=== PATIENT | male | born 1955 | race Caucasian/White ===

== ENCOUNTER 2017-07-20 15:46 | Emergency (ER) | payer OTHER ==
--- NOTE | 2017-07-20 16:37 | EDM.PDOC ---
ED HPI GENERAL MEDICAL PROBLEM - General Chief Complaint: Back Pain or Injury Stated Complaint: LOWER BACK PAIN Time Seen by Provider: 07/20/17 16:31 Source of Information: Reports: Patient History Limitations: Reports: No Limitations - History of Present Illness INITIAL COMMENTS - FREE TEXT/NARRATIVE: HISTORY AND PHYSICAL: History of present illness: Patient is a 62-year-old male complaining of low back pain. Reports that at 2: 30pm this afternoon he was helping a friend move a stove into his apartment when he felt pain in his low back. States he was pushing while the other friend was pulling on the stove and the pain started. He states the pain does not radiate anywhere, denies any numbness or tingling to his lower extremities, and has not been incontinent of stool or urine. Denies any change in his bowel or bladder pattern. Patient reports he has had muscle strain and sciatica in the past and normally wears a back brace when doing heavy lifting. He has a soft back brace with him which he plans on using over the next couple days. Denies any recent falls, trauma or injury to the area. Review of systems: As per history of present illness and below otherwise all systems reviewed and negative. Past medical history: As per history of present illness and as reviewed below otherwise noncontributory. Surgical history: As per history of present illness and as reviewed below otherwise noncontributory. Social history: No reported history of drug or alcohol abuse. Family history: As per history of present illness and as reviewed below otherwise noncontributory. Physical exam: Gen.: Nontoxic appearing 62-year-old male. Able to speak in full sentences without shortness of breath. Alert and oriented HEENT: Atraumatic, normocephalic, pupils reactive, negative for conjunctival pallor or scleral icterus, mucous membranes moist, throat clear, neck supple, nontender, trachea midline. Lungs: Clear to auscultation, breath sounds equal bilaterally, chest nontender. Heart: S1S2, regular rate and rhythm Abdomen: Soft, nondistended, nontender. Negative for masses. Negative for costovertebral tenderness. Pelvis: Stable nontender. Genitourinary: Deferred. Rectal: Deferred. Back: C-spine and back were palpated without tenderness, crepitus, obvious deformity or step-off. Patient has full range of motion of the trunk/torso. Extremities: Atraumatic, negative for cords or calf pain. Neurovascular unremarkable. Neuro: Awake, alert, oriented. Cranial nerves II through XII unremarkable. Cerebellum unremarkable. Motor and sensory unremarkable throughout. Exam nonfocal. Offered to provide the patient with a lumbar back x-ray at this time. Due to the fact the patient had no recent trauma or injury to the area he declined at this time. Offered pain medication which patient deffered due to a drug screening that needs to be done for employment. Diagnostics: Deferred x-ray Therapeutics: Deferred medications at this time as he does have to go take a drug screen for his employer Impression: Muscle strain Definitive disposition and diagnosis as appropriate pending reevaluation and review of above. Onset: Today Onset Date: 07/20/17 Onset Time: 14:30 Duration: Hour(s): Location: Reports: Back Bilateral Lower Back Pain Score (Numeric/FACES): 6 - Related Data Allergies Allergy/AdvReac Type Severity Reaction Status Date / Time No Known Allergies Allergy Verified 12/10/16 09:42 Home Meds: Home Meds Aspirin 325 mg PO DAILY 07/20/17 [History] Past Medical History Cardiovascular History: Reports: Hypertension Other Cardiovascular History: used to take norvasc, but dc'd now - Infectious Disease History Infectious Disease History: Reports: Chicken Pox - Past Surgical History GI Surgical History: Reports: Cholecystectomy, Hernia, Inguinal Male Surgical History: Reports: Vasectomy Social & Family History - Family History Family Medical History: Noncontributory - Tobacco Use Smoking Status *Q: Current Every Day Smoker Years of Tobacco use: 55 Packs/Tins Daily: 1 Used Tobacco, but Quit: No Second Hand Smoke Exposure: Yes - Caffeine Use Caffeine Use: Reports: Coffee - Recreational Drug Use Recreational Drug Use: No ED ROS GENERAL - Review of Systems Review Of Systems: ROS reveals no pertinent complaints other than HPI. ED EXAM, GENERAL - Physical Exam Exam: See Below (See dictation) Course - Vital Signs Last Recorded V/S: Last Vital Signs Temp 36.8 C 07/20/17 16:04 Pulse 80 07/20/17 16:04 Resp 20 07/20/17 16:04 BP 143/77 H 07/20/17 16:04 Pulse Ox 94 L 07/20/17 16:04 Departure - Departure Time of Disposition: 16:38 Disposition: Home, Self-Care 01 Condition: Good Clinical Impression: Muscle strain - Discharge Information Referrals: PCP,None [Primary Care Provider] - Additional Instructions: The following information is given to patients seen in the emergency department who are being discharged to home. This information is to outline your options for follow-up care. We provide all patients seen in our emergency department with a follow-up referral. The need for follow-up, as well as the timing and circumstances, are variable depending upon the specifics of your emergency department visit. If you don't have a primary care physician on staff, we will provide you with a referral. We always advise you to contact your personal physician following an emergency department visit to inform them of the circumstance of the visit and for follow-up with them and/or the need for any referrals to a consulting specialist. The emergency department will also refer you to a specialist when appropriate. This referral assures that you have the opportunity for followup care with a specialist. All of these measure are taken in an effort to provide you with optimal care, which includes your followup. Under all circumstances we always encourage you to contact your private physician who remains a resource for coordinating your care. When calling for followup care, please make the office aware that this follow-up is from your recent emergency room visit. If for any reason you are refused follow-up, please contact the [facility] emergency department at and ask to speak to the emergency department charge nurse. [facility] Primary care- Internal Medicine and Family [address] [address] 1. Please take your medications as prescribed. Please do not take these medications while needing to function at work or driving as we discussed. May take Tylenol and/or ibuprofen as directed for daytime use 2. Apply heat to the area a couple times throughout the day 3. Follow-up with your primary care provider in the next 1-2 days. May return to the ED as needed as discussed
[2017-07-20 17:07] VITALS: BP 158/88
== END 2017-07-20 17:04 | disposition home or self-care (01) ==
LOC: MW.ED 15:46
DX: S39.012A Strain of muscle, fascia and tendon of lower back, initial encounter (principal); I10 Essential (primary) hypertension; F17.210 Nicotine dependence, cigarettes, uncomplicated; Z79.82 Long term (current) use of aspirin; X50.0XXA Overexertion from strenuous movement or load, initial encounter
CPT/HCPCS: 99283

== ENCOUNTER 2019-01-20 09:28 | Emergency (ER) | payer OTHER ==
[2019-01-20 09:45] VITALS: BP 139/88
[2019-01-20] MEDS ORDERED: Diphtheria,Pertussis(Acell),Tetanus Vaccine 0.5 ML Syringe IM ONE (09:55)
--- NOTE | 2019-01-20 10:06 | EDM.PDOC ---
ED HPI GENERAL MEDICAL PROBLEM - General Chief Complaint: Laceration Stated Complaint: GLASS IN HAND Time Seen by Provider: 01/20/19 10:00 Source of Information: Reports: Patient History Limitations: Reports: No Limitations - History of Present Illness INITIAL COMMENTS - FREE TEXT/NARRATIVE: HISTORY AND PHYSICAL: History of present illness: Patient is a 63-year-old male here with a laceration to his left hand. He states he was opening a fire extinguisher case when the glass slipped out of the case and cut him between the 3rd and 4th finger. He states the glass did not break. He is not UTD on his tetanus. Review of systems: As per history of present illness and below otherwise all systems reviewed and negative. Past medical history: As per history of present illness and as reviewed below otherwise noncontributory. Surgical history: As per history of present illness and as reviewed below otherwise noncontributory. Social history: No reported history of drug or alcohol abuse. Family history: As per history of present illness and as reviewed below otherwise noncontributory. Physical exam: General: Patient sitting comfortably in no acute distress and nontoxic appearing HEENT: Atraumatic, normocephalic, pupils reactive, negative for conjunctival pallor or scleral icterus, mucous membranes moist, throat clear, neck supple, nontender, trachea midline. No meningeal signs. Lungs: Clear to auscultation, breath sounds equal bilaterally, chest nontender. Heart: S1S2, regular, negative for clicks, rubs, or overt murmur. Abdomen: Soft, nondistended, nontender. Negative for masses or hepatosplenomegaly. Negative for costovertebral tenderness. No rigidity, rebound , guarding. Pelvis: Stable nontender. Genitourinary: Deferred. Rectal: Deferred. Extremities: There is a 1cm laceration in the web space of the left hand between the 3rd and 4th digits. negative for cords or calf pain. Neurovascular unremarkable. Neuro: Awake, alert, oriented. Cranial nerves II through XII unremarkable. Cerebellum unremarkable. Motor and sensory unremarkable throughout. Exam nonfocal. Notes: Diagnostics: None Therapeutics: Tdap Laceration repair Prescriptions: Impression: Laceration Plan: 1. Keep the area clean and dry as instructed 2. Follow up with primary care provider 3. Return to ED as needed as discussed Definitive disposition and diagnosis as appropriate pending reevaluation and review of above. - Related Data Allergies Allergy/AdvReac Type Severity Reaction Status Date / Time codeine Allergy Delusions Verified 01/20/19 09:39 Home Meds: Home Meds Cholecalciferol (Vitamin D3) [Vitamin D] 5,000 unit PO DAILY 01/20/19 [History] Mg Trisilicate/AlH/NahCO3/AA [Gaviscon 80-14.2 MG] 2 each PO DAILY PRN 01/20/19 [History] Potassium 1 tab PO DAILY 01/20/19 [History] Past Medical History Cardiovascular History: Reports: Hypertension Other Cardiovascular History: used to take norvasc, but dc'd now - Infectious Disease History Infectious Disease History: Reports: Chicken Pox - Past Surgical History GI Surgical History: Reports: Cholecystectomy, Hernia, Inguinal Male Surgical History: Reports: Vasectomy Social & Family History - Family History Family Medical History: Noncontributory - Tobacco Use Smoking Status *Q: Current Every Day Smoker Years of Tobacco use: 50 Packs/Tins Daily: 1 - Caffeine Use Caffeine Use: Reports: Coffee - Recreational Drug Use Recreational Drug Use: No ED ROS GENERAL - Review of Systems Review Of Systems: ROS reveals no pertinent complaints other than HPI. ED EXAM, SKIN/RASH Exam: See Below (see dictation) ED SKIN PROCEDURES - Laceration/Wound Repair Left Hand Lac/Wound length In cm: 1 Appearance: Superficial, Subcutaneous, Linear Distal NVT: Neuro & Vascular Intact, No Tendon Injury Anesthetic Type: Local Local Anesthesia - Lidocaine (Xylocaine): 1% Plain Skin Prep: Chlorhexidine (Hibiciens), Saline Saline Irrigation (cc's): 250 Exploration/Debridement/Repair: Wound Explored, In a Bloodless Field, Explored to Base Closed with: Sutures Suture Size: other (5-0 Chormic gut) # of Sutures: 3 Suture Type: Interrupted, Simple Course - Vital Signs Last Recorded V/S: Last Vital Signs Temp 97.2 F 01/20/19 09:41 Pulse 82 01/20/19 09:41 Resp 20 01/20/19 09:41 BP 139/88 01/20/19 09:41 Pulse Ox 94 L 01/20/19 09:41 - Orders/Labs/Meds Orders: Active Orders 24 hr Category Date Time Status Vaccines to be Administered [RC] PER UNIT ROUTINE Care 01/20/19 09:55 Ordered Meds: Medications Discontinued Medications Generic Name Dose Route Start Last Admin Trade Name Tory PRN Reason Stop Dose Admin Diphtheria/Tetanus/Acell Pertussis 0.5 ml 01/20/19 09:55 01/20/19 10:20 Adacel IM 01/20/19 09:56 0.5 ml .ONCE ONE Administration Lidocaine HCl 5 ml 01/20/19 09:55 01/20/19 10:21 Xylocaine-Mpf 1% INJECT 01/20/19 09:56 5 ml ONETIME ONE Administration Departure - Departure Time of Disposition: 10:40 Disposition: Home, Self-Care 01 Condition: Good Clinical Impression: Laceration - Discharge Information Referrals: PCP,Unknown [Primary Care Provider] - Forms: ED Department Discharge Additional Instructions: The following information is given to patients seen in the emergency department who are being discharged to home. This information is to outline your options for follow-up care. We provide all patients seen in our emergency department with a follow-up referral. The need for follow-up, as well as the timing and circumstances, are variable depending upon the specifics of your emergency department visit. If you don't have a primary care physician on staff, we will provide you with a referral. We always advise you to contact your personal physician following an emergency department visit to inform them of the circumstance of the visit and for follow-up with them and/or the need for any referrals to a consulting specialist. The emergency department will also refer you to a specialist when appropriate. This referral assures that you have the opportunity for follow-up care with a specialist. All of these measure are taken in an effort to provide you with optimal care, which includes your follow-up. Under all circumstances we always encourage you to contact your private physician who remains a resource for coordinating your care. When calling for follow-up care, please make the office aware that this follow-up is from your recent emergency room visit. If for any reason you are refused follow-up, please contact the [facility] Emergency Department at and asked to speak to the emergency department charge nurse. [facility] [address] [place] [id number] [facility] [address] [place] [id number] 1. Keep the area clean and dry as instructed 2. Follow up with primary care provider 3. Return to ED as needed as discussed - My Orders Last 24 Hours: My Active Orders 01/20/19 09:55 Vaccines to be Administered [RC] PER UNIT ROUTINE - Assessment/Plan Last 24 Hours: My Active Orders 01/20/19 09:55 Vaccines to be Administered [RC] PER UNIT ROUTINE
== END 2019-01-20 11:04 | disposition home or self-care (01) ==
LOC: MW.ED 09:28
DX: S61.412A Laceration without foreign body of left hand, initial encounter (principal); Z23 Encounter for immunization; I10 Essential (primary) hypertension; F17.210 Nicotine dependence, cigarettes, uncomplicated; Z88.5 Allergy status to narcotic agent; Z79.899 Other long term (current) drug therapy; W25.XXXA Contact with sharp glass, initial encounter
CPT/HCPCS: 12001; 90471; 90715; 99282; J2001

== ENCOUNTER 2020-05-21 12:56 | Emergency (ER) | payer BC, OTHER ==
[2020-05-21] MEDS ORDERED: methylPREDNISolone Sodium Succinate 125 MG/2 ML SDV IVPUSH ONE (13:09)
--- NOTE | 2020-05-21 13:13 | EDM.PDOC ---
ED HPI GENERAL MEDICAL PROBLEM - General Chief Complaint: Respiratory Problem Stated Complaint: TROUBLE BREATHING/SIDE PAIN Time Seen by Provider: 05/21/20 12:57 - History of Present Illness INITIAL COMMENTS - FREE TEXT/NARRATIVE: 65-year-old male with over [id number] smoking history presenting with shortness of breath and right-sided pleuritic chest pain. The patient reports that he has been experiencing some degree of shortness of breath and chronic cough for the last few months. Over the last 3 days he feels like it is gotten worse. 3 days ago he saw his primary care doctor and was started on albuterol neb. His doctor initially said to just do it once or twice a day. He took it 3 times this morning and does not feel like it made much of a difference. The shortness of breath is associated with a right lateral chest pain that worsens with deep breaths. He has a nonproductive cough he denies a fever. No abdominal pain no nausea or vomiting. No exertional chest pain. Patient also has a history of hypertension. No radiation or other associated symptoms. - Related Data Allergies Allergy/AdvReac Type Severity Reaction Status Date / Time codeine Allergy Delusions Verified 05/21/20 13:02 Home Meds: Home Meds Cholecalciferol (Vitamin D3) [Vitamin D] 5,000 unit PO DAILY 01/20/19 [History] Mag/Aluminum/Sod Bicarb/Alginc [Gaviscon 80-14.2 MG] 2 each PO DAILY PRN 01/20/19 [History] Potassium 1 tab PO DAILY 01/20/19 [History] Non-Formulary Medication [NF Drug] 1 each PO ASDIRECTED PRN 05/21/20 [History] predniSONE [Prednisone] 40 mg PO DAILY 4 Days #8 tablet 05/21/20 [Rx] Past Medical History Cardiovascular History: Reports: Hypertension Other Cardiovascular History: used to take norvasc, but dc'd now - Infectious Disease History Infectious Disease History: Reports: Chicken Pox - Past Surgical History GI Surgical History: Reports: Cholecystectomy, Hernia, Inguinal Male Surgical History: Reports: Vasectomy Social & Family History - Family History Family Medical History: Noncontributory - Tobacco Use Smoking Status *Q: Current Every Day Smoker Years of Tobacco use: 52 Packs/Tins Daily: 1 - Caffeine Use Caffeine Use: Reports: Coffee, Soda - Recreational Drug Use Recreational Drug Use: No ED ROS GENERAL - Review of Systems Review Of Systems: See Below Free Text/Narrative/Comment: General: No fever. Skin: No rash. Eyes: No vision problems. ENT: No sore throat. Neck: No neck stiffness. Respiratory: Per HPI Cardiac: Per HPI Gastrointestinal: No nausea, vomiting or abdominal pain. Urinary: No dysuria. Musculoskeletal: No myalgias/arthralgias. Neurologic: No headache. ED EXAM, GENERAL - Physical Exam Exam: See Below Free Text/Narrative:: General Appearance: No acute distress, appears comfortable Skin: No rash HEENT: Normocephalic/atraumatic, sclera anicteric, mucous membranes moist Neck: Normal range of motion Chest and Lungs: Bilateral breath sounds, clear to auscultation Cardiovascular: Regular rate and rhythm, no murmur Abdomen: Soft, non-tender Back: Normal Musculoskeletal: No edema or tenderness Neurologic: Awake, alert, no obvious deficits, moving all extremities Psychiatric: Appropriate, cooperative Course - Vital Signs Last Recorded V/S: Last Vital Signs Temp 96.5 F L 05/21/20 13:03 Pulse 94 05/21/20 13:03 Resp 18 05/21/20 13:03 BP 138/83 05/21/20 13:03 Pulse Ox 95 05/21/20 13:03 - Orders/Labs/Meds Labs: Laboratory Tests 05/21/20 05/21/20 05/21/20 Range/Units 13:24 13:24 13:24 WBC 10.06 (4.0-11.0) K/uL RBC 5.13 (4.50-5.90) M/uL Hgb 17.1 H (13.0-17.0) g/dL Hct 49.5 (38.0-50.0) % MCV 96.5 (80.0-98.0) fL MCH 33.3 H (27.0-32.0) pg MCHC 34.5 (31.0-37.0) g/dL RDW Std Deviation 46.2 (28.0-62.0) fl RDW Coeff of Tres 13 (11.0-15.0) % Plt Count 202 (150-400) K/uL MPV 11.00 (7.40-12.00) fL Neut % (Auto) 57.8 (48.0-80.0) % Lymph % (Auto) 29.6 (16.0-40.0) % Price % (Auto) 11.1 (0.0-15.0) % Eos % (Auto) 1.2 (0.0-7.0) % Baso % (Auto) 0.3 (0.0-1.5) % Neut # (Auto) 5.8 H (1.4-5.7) K/uL Lymph # (Auto) 3.0 H (0.6-2.4) K/uL Price # (Auto) 1.1 H (0.0-0.8) K/uL Eos # (Auto) 0.1 (0.0-0.7) K/uL Baso # (Auto) 0.0 (0.0-0.1) K/uL Nucleated RBC % 0.2 /100WBC Nucleated RBCs # 0 K/uL D-Dimer, Quantitative (0.0-0.50) mg/L FEU Sodium 137 (136-148) mmol/L Potassium 4.3 (3.5-5.1) mmol/L Chloride 100 (98-107) mmol/L Carbon Dioxide 26.9 (21.0-32.0) mmol/L BUN 18 (7.0-18.0) mg/dL Creatinine 1.0 (0.8-1.3) mg/dL Est Cr Clr Drug Dosing 75.03 mL/min Estimated GFR (MDRD) > 60.0 ml/min Glucose 213 H (74-106) mg/dL Calcium 9.0 (8.5-10.1) mg/dL Total Bilirubin 0.5 (0.2-1.0) mg/dL AST 27 (15-37) IU/L ALT 56 (14-63) IU/L Alkaline Phosphatase 49 (46-116) U/L Troponin I < 0.050 (0.000-0.056) ng/mL B-Natriuretic Peptide < 2 (<100) PG/ML Total Protein 7.5 (6.4-8.2) g/dL Albumin 4.0 (3.4-5.0) g/dL Globulin 3.5 (2.6-4.0) g/dL Albumin/Globulin Ratio 1.1 (0.9-1.6) 07/13/20 Range/Units 14:20 WBC (4.0-11.0) K/uL RBC (4.50-5.90) M/uL Hgb (13.0-17.0) g/dL Hct (38.0-50.0) % MCV (80.0-98.0) fL MCH (27.0-32.0) pg MCHC (31.0-37.0) g/dL RDW Std Deviation (28.0-62.0) fl RDW Coeff of Tres (11.0-15.0) % Plt Count (150-400) K/uL MPV (7.40-12.00) fL Neut % (Auto) (48.0-80.0) % Lymph % (Auto) (16.0-40.0) % Price % (Auto) (0.0-15.0) % Eos % (Auto) (0.0-7.0) % Baso % (Auto) (0.0-1.5) % Neut # (Auto) (1.4-5.7) K/uL Lymph # (Auto) (0.6-2.4) K/uL Price # (Auto) (0.0-0.8) K/uL Eos # (Auto) (0.0-0.7) K/uL Baso # (Auto) (0.0-0.1) K/uL Nucleated RBC % /100WBC Nucleated RBCs # K/uL D-Dimer, Quantitative 0.35 (0.0-0.50) mg/L FEU Sodium (136-148) mmol/L Potassium (3.5-5.1) mmol/L Chloride (98-107) mmol/L Carbon Dioxide (21.0-32.0) mmol/L BUN (7.0-18.0) mg/dL Creatinine (0.8-1.3) mg/dL Est Cr Clr Drug Dosing mL/min Estimated GFR (MDRD) ml/min Glucose (74-106) mg/dL Calcium (8.5-10.1) mg/dL Total Bilirubin (0.2-1.0) mg/dL AST (15-37) IU/L ALT (14-63) IU/L Alkaline Phosphatase (46-116) U/L Troponin I (0.000-0.056) ng/mL B-Natriuretic Peptide (<100) PG/ML Total Protein (6.4-8.2) g/dL Albumin (3.4-5.0) g/dL Globulin (2.6-4.0) g/dL Albumin/Globulin Ratio (0.9-1.6) Meds: Medications Discontinued Medications Generic Name Dose Route Start Last Admin Trade Name Tory PRN Reason Stop Dose Admin Ketorolac Tromethamine 30 mg 05/21/20 14:43 Toradol IVPUSH 05/21/20 14:44 ONETIME ONE Methylprednisolone Sodium Succinate 125 mg 05/21/20 13:09 05/21/20 13:34 Solu-Medrol IVPUSH 05/21/20 13:10 125 mg ONETIME ONE Administration Departure - Departure Time of Disposition: 14:48 Disposition: Home, Self-Care 01 Condition: Good Clinical Impression: COPD (chronic obstructive pulmonary disease) - Discharge Information *PRESCRIPTION DRUG MONITORING PROGRAM REVIEWED*: Not Applicable *COPY OF PRESCRIPTION DRUG MONITORING REPORT IN PATIENT NÉSTOR: Not Applicable Instructions: Steps to Quit Smoking, [id number], Chronic Obstructive Pulmonary Disease Exacerbation, [id number] Referrals: Arnold Snow MD [Primary Care Provider] - Forms: ED Department Discharge Additional Instructions: For the next 4 days please do a nebulizer treatment every 6 hours or so while you are awake. Your prescription for prednisone should start tomorrow. Please call your primary care doctor and arrange a follow-up appointment for later this week or early next week. If your symptoms worsen in the meantime you develop any new symptoms that concern you please call your doctor or return to the emergency room. The following information is given to patients seen in the emergency department who are being discharged to home. This information is to outline your options for follow-up care. We provide all patients seen in our emergency department with a follow-up referral. The need for follow-up, as well as the timing and circumstances, are variable depending upon the specifics of your emergency department visit. If you don't have a primary care physician on staff, we will provide you with a referral. We always advise you to contact your personal physician following an emergency department visit to inform them of the circumstance of the visit and for follow-up with them and/or the need for any referrals to a consulting specialist. The emergency department will also refer you to a specialist when appropriate. This referral assures that you have the opportunity for follow-up care with a specialist. All of these measure are taken in an effort to provide you with optimal care, which includes your follow-up. Under all circumstances we always encourage you to contact your private physician who remains a resource for coordinating your care. When calling for follow-up care, please make the office aware that this follow-up is from your recent emergency room visit. If for any reason you are refused follow-up, please contact the [facility] Emergency Department at and asked to speak to the emergency department charge nurse. Sepsis Event Note (ED) - Evaluation Sepsis Screening Result: No Definite Risk - Focused Exam Vital Signs: Vital Signs Temp Pulse Resp BP Pulse Ox 05/21/20 13:03 96.5 F L 94 18 138/83 95 - Assessment/Plan Assessment:: 65-year-old male presenting with signs and symptoms that seem most consistent with COPD. He has no significant wheezing on exam. However he has done 3 albuterol neb treatments this morning already most recently 2 hours ago. So he may simply still be experiencing the effects of the bronchodilator. ACS considered in EKG and troponin are pending. But the clear pleuritic nature of the pain chronicity of all of this makes ACS much less likely if initial troponin negative I think that would be adequate to rule out ACS. PE certainly needs to be considered he does have pleuritic pain he is not improving with standard bronchodilator therapy. D-dimer is been added. He is not tachycardic. His oxygen right now is in the low 90s this would be consistent with his reported smoking history. Pneumonia considered pneumothorax consider chest x- ray will evaluate for these as well. We will give a dose of steroids and reassess. 1445: Patient's labs including d-dimer and troponin are normal. On reassessment he is laying flat working on his phone he has no significant respiratory distress. His work of breathing is normal. Given the negative evaluation I do think some degree of COPD is most likely the cause of his symptoms. We discussed doing a neb treatment every 6 hours for the next 4 days we will also d o 4 days of prednisone patient will follow-up with his primary care doctor.
[2020-05-21 14:05] LABS: BLOOD UREA NITROGEN,BUN 18 mg/dL (7.0-18.0); CARBON DIOXIDE,CO2 26.9 mmol/L (21.0-32.0); CHLORIDE,CL 100 mmol/L (98-107); GLUCOSE RANDOM 213 mg/dL (74-106); POTASSIUM,K 4.3 mmol/L (3.5-5.1); SODIUM,NA 137 mmol/L (136-148)
--- NOTE | 2020-05-21 14:11 | CR ---
Chest: 2 views of the chest were obtained. Comparison: Prior chest x-ray of 12/10/16. Heart size at the upper limits of normal. Epicardial fat pad is noted on the left side. Lungs are clear and no acute parenchymal change. Minimal degenerative change is noted within the spine. Impression: 1. Findings as noted above. 2. Nothing acute is seen. Diagnostic code #2 Study was dictated in MDT
[2020-05-21] MEDS ORDERED: Ketorolac 30 MG/ML SDV IVPUSH ONE (14:43)
[2020-05-21 15:38] VITALS: BP 142/76; PULSE 90
== END 2020-05-21 14:57 | disposition home or self-care (01) ==
LOC: MW.ED 12:56
DX: J44.9 Chronic obstructive pulmonary disease, unspecified (principal); I10 Essential (primary) hypertension; F17.210 Nicotine dependence, cigarettes, uncomplicated; Z88.5 Allergy status to narcotic agent; Z79.899 Other long term (current) drug therapy
CPT/HCPCS: 36415; 71046; 80053; 83880; 84484; 85025; 85379; 96374; 99285; J2930; 99283

== ENCOUNTER 2021-05-21 11:26 | Emergency (ER) | payer BC, MEDICARE ==
[2021-05-21] MEDS ORDERED: Ondansetron 4 MG/2 ML SDV IVPUSH ONE (12:08)
[2021-05-21] MEDS ORDERED: Ketorolac 30 MG/ML SDV IVPUSH ONE (12:08)
[2021-05-21] MEDS ORDERED: Sodium Chloride 0.9% 1,000 ML IV ONE (12:08)
--- NOTE | 2021-05-21 12:13 | EDM.PDOC ---
ED HPI GENERAL MEDICAL PROBLEM - General Chief Complaint: Abdominal Pain Stated Complaint: L SIDE PAIN Time Seen by Provider: 05/21/21 11:28 Source of Information: Reports: Patient History Limitations: Reports: No Limitations - History of Present Illness INITIAL COMMENTS - FREE TEXT/NARRATIVE: HISTORY AND PHYSICAL: History of present illness: Patient is a 66-year-old male who presents emergency room today with concern of left-sided abdominal pain/flank pain that started last night. Patient states that the pain is burning in nature. Patient states that he took a muscle rel axer this morning without relief of symptoms. Patient states he did have a prior kidney stone but this feels different than his prior kidney stone. Patient states he does have a history of cholecystectomy, umbilical hernia repair, and mastectomy but denies any other surgeries. Patient denies any other health history. Patient denies fever, chills, chest pain, shortness of breath, or cough. Denies headache, neck stiff ness, change in vision, syncope, or near syncope. Denies nausea, vomiting, diarrhea, constipation, or dysuria. Has not noted any blood in urine or stool. Patient has been eating and drinking appropriately. Review of systems: As per history of present illness and below otherwise all systems reviewed and negative. Past medical history: As per history of present illness and as reviewed below otherwise noncontributory. Surgical history: As per history of present illness and as reviewed below otherwise noncontributory. Social history: See social history for further information Family history: As per history of present illness and as reviewed below otherwise noncontributory. Physical exam: General: Patient is alert, oriented, and in no acute distress. Patient sitting comfortably on exam table. Vitals stable and reviewed by me HEENT: Atraumatic, normocephalic, pupils equal and reactive bilaterally, negative for conjunctival pallor or scleral icterus, mucous membranes moist, TMs normal bilaterally, throat clear, neck supple, nontender, trachea midline. No drooling or trismus noted. No meningeal signs. No hot potato voice noted. Lungs: Clear to auscultation, breath sounds equal bilaterally, chest nontender. Heart: S1S2, regular rate and rhythm without overt murmur Abdomen: Soft, nondistended, moderate periumbilical tenderness without guarding, moderate left lower quadrant tenderness without guarding, negative Pickett and rebound tenderness. Negative for masses or hepatosplenomegaly. Negative for costovertebral tenderness. Pelvis: Stable nontender. Genitourinary: Deferred. Rectal: Deferred. Skin: Intact, warm, dry. No lesions or rashes noted. Extremities: Atraumatic, negative for cords or calf pain. Neurovascular unremarkable. Neuro: Awake, alert, oriented. Cranial nerves II through XII unremarkable. Cerebellum unremarkable. Motor and sensory unremarkable throughout. Exam nonfocal. Notes: Patient is a 66-year-old male who presents to the ED today with concern of left- sided abdominal pain/flank pain that began last night. Upon arrival to the ED, patient sitting comfortably on exam table and is vitally stable. Patient does noted to have periumbilical abdominal pain and left lower quadrant abdominal pain on exam with negative CVA tenderness. Will obtain EKG, routine labs, and abdominal pelvic CT scan See Dr. Odell dictation for specific EKG interpretation. However, normal sinus rhythm with a rate of 69 without STEMI. Mild derangements of CBC and CMP unremarkable. Lipase within normal limits. Abdominal pelvic CT scan demonstrates a 6.5 mm calculus within the proximal left ureter just at the uteropelvic junction with associated mild left-sided hydronephrosis. Hepatomegaly and hepatic steatosis. Incidental findings of sukhwinder ging today discussed with patient the importance to have this followed up with a primary care provider. Urinalysis is clear of infection Upon reevaluation of patient, he remains vitally stable and has improved symptoms with therapeutics given today in the emergency room. Strict return precautions thoroughly discussed with patient. Discussed importance for follow- up with a urologist and primary care provider. Voices understanding and is agreeable to plan of care. Denies any further questions or concerns at this time. Patient declines wanting a strainer. Diagnostics: EKG, CBC, CMP, UA, troponin, abdominal pelvic CT with and without contrast, lipase Therapeutics: Saline, Toradol, Zofran Prescription: Flomax, Zofran, Toradol (I did offer oxycodone or [place] but patient does not want any narcotic medication) Impression: Ureterolithiasis, left Plan: 1. Take medication as prescribed. Do not take any additional NSAIDs with Toradol such as ibuprofen, naproxen, Aleve, or aspirin. You can also take Tylenol as directed for pain and discomfort. 2. Follow-up with the urologist and your primary care provider as discussed. Return to the ED as needed and as discussed. Definitive disposition and diagnosis as appropriate pending reevaluation and review of above. left flank around to Left abodmen Pain Score (Numeric/FACES): 5 - Related Data Allergies Allergy/AdvReac Type Severity Reaction Status Date / Time codeine Allergy Delusions Verified 05/21/21 11:50 Home Meds: Home Meds Cholecalciferol (Vitamin D3) [Vitamin D] 5,000 unit PO DAILY 01/20/19 [History] Mag/Aluminum/Sod Bicarb/Alginc [Gaviscon 80-14.2 MG] 2 each PO DAILY PRN 01/20/19 [History] Potassium 1 tab PO DAILY 01/20/19 [History] Ketorolac [Toradol] 10 mg PO Q4H PRN #30 tab 05/21/21 [Rx] Ondansetron [Zofran ODT] 4 mg PO Q6H PRN #8 tab.dis 05/21/21 [Rx] Tamsulosin HCl [Flomax] 0.4 mg PO DAILY #5 cap.er.24h 05/21/21 [Rx] Past Medical History Cardiovascular History: Reports: Hypertension Other Cardiovascular History: used to take norvasc, but dc'd now - Infectious Disease History Infectious Disease History: Reports: Chicken Pox, Measles, Mumps - Past Surgical History GI Surgical History: Reports: Cholecystectomy, Hernia, Inguinal Male Surgical History: Reports: Vasectomy Social & Family History - Family History Family Medical History: No Pertinent Family History - Tobacco Use Tobacco Use Status *Q: Current Every Day Tobacco User Years of Tobacco use: 53 Packs/Tins Daily: 1 - Caffeine Use Caffeine Use: Reports: Coffee, Soda - Recreational Drug Use Recreational Drug Use: No ED ROS GENERAL - Review of Systems Review Of Systems: Comprehensive ROS is negative, except as noted in HPI. ED EXAM, GENERAL - Physical Exam Exam: See Below (see dictation) Course - Vital Signs Last Recorded V/S: Last Vital Signs Temp 96.8 F L 05/21/21 15:49 Pulse 66 05/21/21 15:49 Resp 16 05/21/21 15:49 BP 138/72 05/21/21 15:49 Pulse Ox 93 L 05/21/21 15:49 - Orders/Labs/Meds Labs: Laboratory Tests 05/21/21 05/21/21 05/21/21 Range/Units 11:57 11:57 14:30 WBC 10.33 (4.0-11.0) K/uL RBC 4.86 (4.50-5.90) M/uL Hgb 16.0 (13.0-17.0) g/dL Hct 46.4 (38.0-50.0) % MCV 95.5 (80.0-98.0) fL MCH 32.9 H (27.0-32.0) pg MCHC 34.5 (31.0-37.0) g/dL RDW Std Deviation 45.9 (28.0-62.0) fl RDW Coeff of Tres 13 (11.0-15.0) % Plt Count 219 (150-400) K/uL MPV 11.60 (7.40-12.00) fL Neut % (Auto) 70.8 (48.0-80.0) % Lymph % (Auto) 17.7 (16.0-40.0) % [place] % (Auto) 10.5 (0.0-15.0) % Eos % (Auto) 0.7 (0.0-7.0) % Baso % (Auto) 0.3 (0.0-1.5) % Neut # (Auto) 7.3 H (1.4-5.7) K/uL Lymph # (Auto) 1.8 (0.6-2.4) K/uL [place] # (Auto) 1.1 H (0.0-0.8) K/uL Eos # (Auto) 0.1 (0.0-0.7) K/uL Baso # (Auto) 0.0 (0.0-0.1) K/uL Nucleated RBC % 0.0 /100WBC Nucleated RBCs # 0 K/uL Sodium 139 (136-148) mmol/L Potassium 4.8 (3.5-5.1) mmol/L Chloride 104 (98-107) mmol/L Carbon Dioxide 26.2 (21.0-32.0) mmol/L BUN 18 (7.0-18.0) mg/dL Creatinine 0.9 (0.8-1.3) mg/dL Est Cr Clr Drug Dosing 87.42 mL/min Estimated GFR (MDRD) > 60.0 ml/min Glucose 166 H (74-106) mg/dL Calcium 8.8 (8.5-10.1) mg/dL Total Bilirubin 0.5 (0.2-1.0) mg/dL AST 20 (15-37) IU/L ALT 33 (14-63) IU/L Alkaline Phosphatase 51 (46-116) U/L Total Protein 7.0 (6.4-8.2) g/dL Albumin 3.6 (3.4-5.0) g/dL Globulin 3.4 (2.6-4.0) g/dL Albumin/Globulin Ratio 1.1 (0.9-1.6) Lipase 95 (73-393) U/L Urine Color YELLOW Urine Appearance CLEAR Urine pH 5.0 (5.0-8.0) Ur Specific [place] 1.020 (1.001-1.035) Urine Protein NEGATIVE (NEGATIVE) mg/dL Urine Glucose (UA) NEGATIVE (NEGATIVE) mg/dL Urine Ketones NEGATIVE (NEGATIVE) mg/dL Urine Occult Blood MODERATE H (NEGATIVE) Urine Nitrite NEGATIVE (NEGATIVE) Urine Bilirubin NEGATIVE (NEGATIVE) Urine Urobilinogen 0.2 (<2.0) EU/dL Ur Leukocyte Esterase NEGATIVE (NEGATIVE) Urine RBC 1-4 (0-2/HPF) Urine WBC 0-1 (0-5/HPF) Ur Epithelial Cells RARE (NONE-FEW) Urine Bacteria RARE (NEGATIVE) Urine Mucus LIGHT (NONE-MOD) Meds: Medications Discontinued Medications Generic Name Dose Route Start Last Admin Trade Name Freq PRN Reason Stop Dose Admin Sodium Chloride 1,000 mls @ 999 mls/hr 05/21/21 12:08 05/21/21 12:18 Normal Saline IV 05/21/21 13:08 999 mls/hr BOLUS ONE Administration Iopamidol 100 ml 05/21/21 13:06 05/21/21 13:06 Iopamidol 755 Mg/Ml 500 Ml Multipack Bottle IVPUSH 05/21/21 13:07 100 ml ONETIME STA Administration Ketorolac Tromethamine 30 mg 05/21/21 12:08 05/21/21 12:19 Ketorolac 30 Mg/Ml Sdv IVPUSH 05/21/21 12:09 30 mg ONETIME ONE Administration Ondansetron HCl 4 mg 05/21/21 12:08 05/21/21 12:19 Ondansetron 4 Mg/2 Ml Sdv IVPUSH 05/21/21 12:09 4 mg ONETIME ONE Administration Departure - Departure Time of Disposition: 15:00 Disposition: Home, Self-Care 01 Clinical Impression: Ureterolithiasis - Discharge Information Prescriptions: Tamsulosin HCl [Flomax] 0.4 mg PO DAILY #5 cap.er.24h Ketorolac [Toradol] 10 mg PO Q4H PRN #30 tab PRN Reason: Pain Ondansetron [Zofran ODT] 4 mg PO Q6H PRN #8 tab.dis PRN Reason: Nausea/Vomiting Instructions: Flank Pain, Adult, [id number] Referrals: Arnold Snow MD [Primary Care Provider] - Forms: ED Department Discharge Additional Instructions: The following information is given to patients seen in the emergency department who are being discharged to home. This information is to outline your options for follow-up care. We provide all patients seen in our emergency department with a follow-up referral. The need for follow-up, as well as the timing and circumstances, are variable depending upon the specifics of your emergency department visit. If you don't have a primary care physician on staff, we will provide you with a referral. We always advise you to contact your personal physician following an emergency department visit to inform them of the circumstance of the visit and for follow-up with them and/or the need for any referrals to a consulting specialist. The emergency department will also refer you to a specialist when appropriate. This referral assures that you have the opportunity for follow-up care with a specialist. All of these measure are taken in an effort to provide you with optimal care, which includes your follow-up. Under all circumstances we always encourage you to contact your private physician who remains a resource for coordinating your care. When calling for follow-up care, please make the office aware that this follow-up is from your recent emergency room visit. If for any reason you are refused follow-up, please contact the [facility] Emergency Department at and asked to speak to the emergency department charge nurse. [facility] [address] [place] [address] [id number] [facility] [address] [place] [address] Monet Chacko DO, MARIANN, Urology [facility] [address] [place] [address], 5th floor 1. Take medication as prescribed. Do not take any additional NSAIDs with Toradol such as ibuprofen, naproxen, Aleve, or aspirin. You can also take Tylenol as directed for pain and discomfort. 2. Follow-up with the urologist and your primary care provider as discussed. Return to the ED as needed and as discussed. Sepsis Event Note (ED) - Evaluation Sepsis Screening Result: No Definite Risk - Focused Exam Vital Signs: Vital Signs Temp Pulse Resp BP Pulse Ox 05/21/21 15:49 96.8 F L 66 16 138/72 93 L 05/21/21 11:48 96.4 F L 71 18 133/74 96
--- NOTE | 2021-05-21 12:49 | PCM.SN.2 ---
- Free Text/Narrative Note: EKG sinus rhythm heart rate 69 [place] 158 QT duration 441 [place] 61. No prior for comparison. Impression essentially normal EKG.
[2021-05-21] MEDS ORDERED: Iopamidol 755 MG/ML 500 ML Multipack Bottle IVPUSH STA (13:06)
[2021-05-21 13:40] LABS: BLOOD UREA NITROGEN,BUN 18 mg/dL (7.0-18.0); CARBON DIOXIDE,CO2 26.2 mmol/L (21.0-32.0); CHLORIDE,CL 104 mmol/L (98-107); GLUCOSE RANDOM 166 mg/dL (74-106); LIPASE 95 U/L (73-393); POTASSIUM,K 4.8 mmol/L (3.5-5.1); SODIUM,NA 139 mmol/L (136-148)
--- NOTE | 2021-05-21 14:16 | CT ---
Indication: Periumbilical pain, left lower quadrant pain Technique: Volumetric multidetector CT images of the abdomen and pelvis were obtained before and after the administration of intravenous contrast. 100 cc Isovue 370 low osmolar intravenous contrast Comparison: None available. Findings: The lung bases demonstrate basilar atelectasis and air trapping with scattered ground-glass opacities. The liver is enlarged with moderate apex steatosis. There is likely a simple cyst within the medial superior right liver. The portal vein is patent. There is prior cholecystectomy. There is no significant common biliary ductal dilatation or abrupt cut off. The spleen is normal in enhancement and size. The stomach and duodenum are grossly unremarkable. The pancreas is normal in enhancement without significant atrophy. The adrenal glands are unremarkable. There is demonstration of a calculus within the proximal left ureter just at the ureteropelvic junction with mild left-sided hydronephrosis. There is no evidence of distal obstructing calculus. There is mild nonspecific perinephric stranding. There is moderate stool seen throughout the colon with minimal colonic diverticulosis without evidence of diverticulitis. The appendix is unremarkable. There is no significant mesenteric, retroperitoneal, or pelvic sidewall lymph nodes. The aorta is non aneurysmal with mild to moderate scattered atherosclerotic calcifications. The solid pelvic viscera are grossly unremarkable. There is no free fluid or free air. There is a small fat containing umbilical hernia. The lumbar vertebral body heights are grossly maintained with moderate multilevel degenerative disc disease. There is no evidence of displaced fracture or dislocation. Degenerative changes of the bilateral hips are appreciated. Impression: Demonstration of a 6.5 millimeter calculus within the proximal left ureter just at the ureteropelvic junction with associated mild left-sided hydronephrosis. Hepatomegaly and hepatic steatosis. Please note that all CT scans at this facility use dose modulation, iterative reconstruction, and/or weight-based dosing when appropriate to reduce radiation dose to as low as reasonably achievable. Dictated by Fabiano Lancaster MD @ 05/21/2021 2:15:[address] Fabiano Lancaster @ May 21 2021 2:15PM
[2021-05-21 15:50] VITALS: BP 138/72; PULSE 66
== END 2021-05-21 15:52 | disposition home or self-care (01) ==
LOC: MW.ED 11:26
DX: N20.9 Urinary calculus, unspecified (principal); I10 Essential (primary) hypertension; Z72.0 Tobacco use; Z88.5 Allergy status to narcotic agent; Z79.899 Other long term (current) drug therapy
CPT/HCPCS: 36415; 74178; 80053; 81001; 83690; 85025; 93005; 96374; 96375; 99284; J1885; J2405; J7030; Q9967

== ENCOUNTER 2021-05-29 15:41 | Emergency (ER) | payer MEDICARE ==
[2021-05-29] MEDS ORDERED: Ketorolac 30 MG/ML SDV IVPUSH ONE (16:06)
[2021-05-29] MEDS ORDERED: Sodium Chloride 0.9% 1,000 ML IV ONE (16:06)
[2021-05-29] MEDS ORDERED: Ondansetron 4 MG/2 ML SDV IVPUSH ONE (16:06)
--- NOTE | 2021-05-29 16:26 | EDM.PDOC ---
ED HPI GENERAL MEDICAL PROBLEM - General Chief Complaint: Genitourinary Problem Stated Complaint: KIDNEY STONES Time Seen by Provider: 05/29/21 15:53 Source of Information: Reports: Patient History Limitations: Reports: No Limitations - History of Present Illness INITIAL COMMENTS - FREE TEXT/NARRATIVE: HISTORY AND PHYSICAL: History of present illness: Patient is a 66-year-old male who presents to the emergency room with complaints of left flank pain. Patient was seen in the emergency room on 05/21/2021 for a kidney stone. He states he was given IV fluids, Flomax and Toradol and felt "much better". It was not until today that he started to notice the left flank pain that now radiates into the left abdomen and groin. He is concerned that the stone has moved or "gotten bigger". Patient denies any fever, chills, headache, change in vision, syncope or near syncope. Denies any chest pain, back pain, shortness of breath or cough. Denies any abdominal pain, nausea, vomiting, diarrhea, constipation or dysuria. Has not noted any blood in urine or stool. Patient has been eating and drinking appropriately. Review of systems: As per history of present illness and below otherwise all systems reviewed and negative. Past medical history: As per history of present illness and as reviewed below otherwise noncontributory. Surgical history: As per history of present illness and as reviewed below otherwise noncontributory. Social history: See social history for further information Family history: As per history of present illness and as reviewed below otherwise noncontributory. Physical exam: General: Well developed and well nourished. Alert and orientated x 3. Nontoxic in appearance and in no acute distress. Vital signs are stable and have been reviewed by me. Nursing notes were reviewed. HEENT: Atraumatic, normocephalic, pupils equal and reactive bilaterally, negative for conjunctival pallor or scleral icterus, mucous membranes moist, TMs normal bilaterally, throat clear, neck supple, nontender, trachea midline. No drooling or trismus noted. No meningeal signs. No hot potato voice noted. Lungs: Clear to auscultation bilaterally. No wheezes, rales, or rhonchi. Chest nontender. Normal work of breathing, no accessory muscles used. Heart: S1S2, regular rate and rhythm without overt murmur, gallops, or rubs. No JVD. No peripheral edema Abdomen: Soft, nondistended, nontender. Normoactive bowel sounds. Negative for masses. Mild left-sided costovertebral tenderness. Skin: Intact, warm, dry. No lesions or rashes noted. Hematologic: No petechiae or purpra. Mucosa appropriate color and normal nail bed color and refill. Extremities: Atraumatic, moves all extremities per self without difficulty or deficits, negative for cords or calf pain. Neurovascular unremarkable. Neuro: Awake, alert, oriented. Cranial nerves II through XII unremarkable. Cerebellum unremarkable. Motor and sensory unremarkable throughout. Exam nonfocal. Psychiatric: Mood and affect are appropriate. Normal thought process. Answering questions appropriately. Notes: *This patient was seen and evaluated during the 2019 SARS-CoV-2 novel coronavirus pandemic period. Community viral transmission is ongoing at time of this encounter and the emergency department is operating under pandemic response procedures. 05/21/2021: Patient has a 6.5 mm stone in the left proximal ureter just at the ureteropelvic junction with associated mild left-sided hydronephrosis. Patient's lab work was unremarkable. Today's lab work shows that he has an elevated BUN and creatinine of 30/1.6, on 05/21 it was 18/0.9. He is currently receiving IV fluids. Patient does not have an elevated white count or infected urine. He does have hematuria. CT results are pending. CT shows a calculus within the proximal left ureter just at the ureteropelvic junction measuring 3.2 millimeters with associated left-sided hydronephrosis. There is minimal progression of previously seen calculus from 05/21/21. No evidence of distal obstructive stone. Patient states he suddenly got sharp chest pain to the left anterior chest wall which he describes as a squeezing discomfort. EKG shows a normal sinus rhythm with a rate of 74. Two sets of troponin are negative, 3 hours apart. Patient states he is pain- free at this time. Patient states he would like to be admitted for observation as he is uncomfortable being discharged home. I discussed with the patient that he would need to follow-up for his kidney stone with urology. He expresses his dissatisfaction that there is not a urologist that can take it out tonight. I did give him Dr. Chacko, urology at [facility], contact information. I informed him I could keep him for observation for his chest pain, he is agreeable and would like to move forward with this. I spoke with Dr. Fitch, hospitalist on-call, about this patient. She is agreeable to keeping him for further care and management. Shortly after getting the patient a MedSurg bed he requested his IV be removed and he decided to leave AGAINST MEDICAL ADVICE. He is aware of the risks of leaving AMA and wanted to leave immediately. Upon leaving, he again expressed his disfavor of not being able to have his kidney stone removed immediately. I informed him of risks that he should continue to monitor for and return if any of them should arise. Again I encouraged him to follow-up at urology of choice, giving him the closest which would be [facility]. Diagnostics: CBC, CMP, UA, CT abdomen and pelvis without Therapeutics: IV fluid, Toradol Impression: Chest pain, nonspecific Kidney Stone, Left Plan: Left AMA Definitive disposition and diagnosis as appropriate pending reevaluation and review of above. Flank Pain Score (Numeric/FACES): 8 - Related Data Allergies Allergy/AdvReac Type Severity Reaction Status Date / Time codeine Allergy Delusions Verified 05/29/21 15:52 Home Meds: Home Meds Cholecalciferol (Vitamin D3) [Vitamin D] 5,000 unit PO DAILY 01/20/19 [History] Mag/Aluminum/Sod Bicarb/Alginc [Gaviscon 80-14.2 MG] 2 each PO DAILY PRN 01/20/19 [History] Potassium 1 tab PO DAILY 01/20/19 [History] Ketorolac [Toradol] 10 mg PO Q4H PRN #30 tab 05/21/21 [Rx] Ondansetron [Zofran ODT] 4 mg PO Q6H PRN #8 tab.dis 05/21/21 [Rx] Tamsulosin HCl [Flomax] 0.4 mg PO DAILY #5 cap.er.24h 05/21/21 [Rx] Past Medical History Cardiovascular History: Reports: Hypertension Other Cardiovascular History: used to take norvasc, but dc'd now - Infectious Disease History Infectious Disease History: Reports: Chicken Pox, Measles, Mumps - Past Surgical History GI Surgical History: Reports: Cholecystectomy, Hernia, Inguinal Male Surgical History: Reports: Vasectomy Social & Family History - Family History Family Medical History: No Pertinent Family History - Tobacco Use Tobacco Use Status *Q: Current Every Day Tobacco User Years of Tobacco use: 53 Packs/Tins Daily: 1 - Caffeine Use Caffeine Use: Reports: Coffee, Soda - Recreational Drug Use Recreational Drug Use: No ED ROS GENERAL - Review of Systems Review Of Systems: Comprehensive ROS is negative, except as noted in HPI. ED EXAM, RENAL/ - Physical Exam Exam: See Below (See dictation) Course - Vital Signs Last Recorded V/S: Last Vital Signs Temp 96.1 F L 05/29/21 15:53 Pulse 83 05/29/21 19:30 Resp 17 05/29/21 19:30 BP 141/77 H 05/29/21 19:30 Pulse Ox 97 05/29/21 19:30 - Orders/Labs/Meds Orders: Active Orders 24 hr Category Date Time Status Admission Status [Patient Status] [ADT] Stat ADT 05/29/21 20:28 Active Labs: Laboratory Tests 05/29/21 05/29/21 05/29/21 Range/Units 16:08 16:24 16:24 WBC 9.71 (4.0-11.0) K/uL RBC 5.07 (4.50-5.90) M/uL Hgb 16.8 (13.0-17.0) g/dL Hct 49.0 (38.0-50.0) % MCV 96.6 (80.0-98.0) fL MCH 33.1 H (27.0-32.0) pg MCHC 34.3 (31.0-37.0) g/dL RDW Std Deviation 46.8 (28.0-62.0) fl RDW Coeff of Tres 13 (11.0-15.0) % Plt Count 205 (150-400) K/uL MPV 10.90 (7.40-12.00) fL Neut % (Auto) 61.0 (48.0-80.0) % Lymph % (Auto) 26.9 (16.0-40.0) % Hardy % (Auto) 10.4 (0.0-15.0) % Eos % (Auto) 1.4 (0.0-7.0) % Baso % (Auto) 0.3 (0.0-1.5) % Neut # (Auto) 5.9 H (1.4-5.7) K/uL Lymph # (Auto) 2.6 H (0.6-2.4) K/uL Hardy # (Auto) 1.0 H (0.0-0.8) K/uL Eos # (Auto) 0.1 (0.0-0.7) K/uL Baso # (Auto) 0.0 (0.0-0.1) K/uL Nucleated RBC % 0.0 /100WBC Nucleated RBCs # 0 K/uL Sodium 138 (136-148) mmol/L Potassium 4.7 (3.5-5.1) mmol/L Chloride 102 (98-107) mmol/L Carbon Dioxide 26.5 (21.0-32.0) mmol/L BUN 30 H (7.0-18.0) mg/dL Creatinine 1.6 H (0.8-1.3) mg/dL Est Cr Clr Drug Dosing 49.17 mL/min Estimated GFR (MDRD) 43.3 ml/min Glucose 323 H (74-106) mg/dL Calcium 8.8 (8.5-10.1) mg/dL Total Bilirubin 0.4 (0.2-1.0) mg/dL AST 16 (15-37) IU/L ALT 45 (14-63) IU/L Alkaline Phosphatase 53 (46-116) U/L Troponin I (0.000-0.056) ng/mL Total Protein 7.1 (6.4-8.2) g/dL Albumin 3.8 (3.4-5.0) g/dL Globulin 3.3 (2.6-4.0) g/dL Albumin/Globulin Ratio 1.2 (0.9-1.6) Urine Color YELLOW Urine Appearance CLEAR Urine pH 5.5 (5.0-8.0) Ur Specific [place] 1.025 (1.001-1.035) Urine Protein NEGATIVE (NEGATIVE) mg/dL Urine Glucose (UA) >=1000 (NEGATIVE) mg/dL Urine Ketones TRACE H (NEGATIVE) mg/dL Urine Occult Blood LARGE H (NEGATIVE) Urine Nitrite NEGATIVE (NEGATIVE) Urine Bilirubin NEGATIVE (NEGATIVE) Urine Urobilinogen 0.2 (<2.0) EU/dL Ur Leukocyte Esterase NEGATIVE (NEGATIVE) Urine RBC 15-20 (0-2/HPF) Urine WBC 0-2 (0-5/HPF) Ur Epithelial Cells RARE (NONE-FEW) Urine Bacteria FEW (NEGATIVE) Urine Yeast RARE SARS-CoV-2 RNA (ANNIE) (NEGATIVE) 05/29/21 05/29/21 05/29/21 Range/Units 16:24 18:36 19:25 WBC (4.0-11.0) K/uL RBC (4.50-5.90) M/uL Hgb (13.0-17.0) g/dL Hct (38.0-50.0) % MCV (80.0-98.0) fL MCH (27.0-32.0) pg MCHC (31.0-37.0) g/dL RDW Std Deviation (28.0-62.0) fl RDW Coeff of Tres (11.0-15.0) % Plt Count (150-400) K/uL MPV (7.40-12.00) fL Neut % (Auto) (48.0-80.0) % Lymph % (Auto) (16.0-40.0) % Hardy % (Auto) (0.0-15.0) % Eos % (Auto) (0.0-7.0) % Baso % (Auto) (0.0-1.5) % Neut # (Auto) (1.4-5.7) K/uL Lymph # (Auto) (0.6-2.4) K/uL Hardy # (Auto) (0.0-0.8) K/uL Eos # (Auto) (0.0-0.7) K/uL Baso # (Auto) (0.0-0.1) K/uL Nucleated RBC % /100WBC Nucleated RBCs # K/uL Sodium (136-148) mmol/L Potassium (3.5-5.1) mmol/L Chloride (98-107) mmol/L Carbon Dioxide (21.0-32.0) mmol/L BUN (7.0-18.0) mg/dL Creatinine (0.8-1.3) mg/dL Est Cr Clr Drug Dosing mL/min Estimated GFR (MDRD) ml/min Glucose (74-106) mg/dL Calcium (8.5-10.1) mg/dL Total Bilirubin (0.2-1.0) mg/dL AST (15-37) IU/L ALT (14-63) IU/L Alkaline Phosphatase (46-116) U/L Troponin I < 0.050 < 0.050 (0.000-0.056) ng/mL Total Protein (6.4-8.2) g/dL Albumin (3.4-5.0) g/dL Globulin (2.6-4.0) g/dL Albumin/Globulin Ratio (0.9-1.6) Urine Color Urine Appearance Urine pH (5.0-8.0) Ur Specific [place] (1.001-1.035) Urine Protein (NEGATIVE) mg/dL Urine Glucose (UA) (NEGATIVE) mg/dL Urine Ketones (NEGATIVE) mg/dL Urine Occult Blood (NEGATIVE) Urine Nitrite (NEGATIVE) Urine Bilirubin (NEGATIVE) Urine Urobilinogen (<2.0) EU/dL Ur Leukocyte Esterase (NEGATIVE) Urine RBC (0-2/HPF) Urine WBC (0-5/HPF) Ur Epithelial Cells (NONE-FEW) Urine Bacteria (NEGATIVE) Urine Yeast SARS-CoV-2 RNA (ANNIE) NEGATIVE (NEGATIVE) Meds: Medications Discontinued Medications Generic Name Dose Route Start Last Admin Trade Name Freq PRN Reason Stop Dose Admin Aspirin 324 mg 05/29/21 18:54 05/29/21 19:13 Aspirin 81 Mg Tab.Chew PO 05/29/21 18:55 324 mg ONETIME ONE Administration Sodium Chloride 1,000 mls @ 999 mls/hr 05/29/21 16:06 05/29/21 16:27 Normal Saline IV 05/29/21 17:06 999 mls/hr STAT ONE Administration Ketorolac Tromethamine 30 mg 05/29/21 16:06 05/29/21 16:27 Ketorolac 30 Mg/Ml Sdv IVPUSH 05/29/21 16:07 30 mg ONETIME ONE Administration Ondansetron HCl 4 mg 05/29/21 16:06 05/29/21 16:27 Ondansetron 4 Mg/2 Ml Sdv IVPUSH 05/29/21 16:07 4 mg ONETIME ONE Administration Departure - Departure Time of Disposition: 21:44 Disposition: Against Medical Advice 07 Clinical Impression: Kidney stone, Left against medical advice Chest pain Qualifiers: Chest pain type: unspecified Qualified Code(s): R07.9 - Chest pain, unspecified - Discharge Information Referrals: PCP,None [Primary Care Provider] - Forms: ED Department Discharge Sepsis Event Note (ED) - Evaluation Sepsis Screening Result: No Definite Risk - Focused Exam Vital Signs: Vital Signs Temp Pulse Resp BP Pulse Ox 05/29/21 19:30 83 17 141/77 H 97 05/29/21 15:53 96.1 F L 85 18 148/74 H 94 L - My Orders Last 24 Hours: My Active Orders 05/29/21 20:28 Admission Status [Patient Status] [ADT] Stat - Assessment/Plan Last 24 Hours: My Active Orders 05/29/21 20:28 Admission Status [Patient Status] [ADT] Stat
[2021-05-29 16:55] LABS: CARBON DIOXIDE,CO2 26.5 mmol/L (21.0-32.0); POTASSIUM,K 4.7 mmol/L (3.5-5.1)
--- NOTE | 2021-05-29 18:29 | CT ---
Indication: Left flank pain Technique: Volumetric multidetector CT images of the abdomen and pelvis were without the administration of intravenous contrast. Comparison: CT abdomen and pelvis with and without contrast May 21, 2021 Findings: The lung bases are clear. There is hepatomegaly and hepatic steatosis with redemonstration of cystic changes of the liver. There is prior cholecystectomy. There is no significant common biliary ductal dilatation or abrupt cut off. The spleen is normal in attenuation and size. The stomach and duodenum are grossly unremarkable. The pancreas is normal in attenuation without significant atrophy. The adrenal glands are unremarkable. There is minimal progression of previously seen calculus within the proximal left ureter with demonstration of calculus at the ureteropelvic junction measuring 3.2 millimeters. There is no evidence of distal obstructive calculus. There is a mild amount of stool seen throughout the colon. There is mild distal colonic diverticulosis. The appendix is unremarkable. There is no significant mesenteric, retroperitoneal, or pelvic sidewall lymph nodes. The aorta is nonaneurysmal. There is no significant atherosclerotic disease appreciated. The solid pelvic viscera are grossly unremarkable. There is no free fluid or free air. The anterior abdominal wall is intact without significant hernias. The lumbar vertebral body heights are grossly maintained with retrolisthesis of L2 on L3 and L3 on L4. Impression: Demonstration of a calculus within the proximal left ureter just at the ureteropelvic junction measuring 3.2 millimeters with associated left-sided hydronephrosis. Please note that all CT scans at this facility use dose modulation, iterative reconstruction, and/or weight-based dosing when appropriate to reduce radiation dose to as low as reasonably achievable. Dictated by Fabiano Lancaster MD @ 05/29/2021 6:27:[address] Fabiano Lancaster @ May 29 2021 6:27PM
--- NOTE | 2021-05-29 18:51 | PCM.EKG ---
#1 Interpretation EKG Date: 05/29/21 Time: 18:27 Rhythm: NSR Rate (Beats/Min): 74 ST-T: Normal
[2021-05-29] MEDS ORDERED: Aspirin 81 MG Tab.Chew PO ONE (18:54)
[2021-05-29 21:06] VITALS: BP 141/77; PULSE 83
== END 2021-05-29 21:08 | disposition left against medical advice (07) ==
LOC: MW.ED 15:41
DX: N13.2 Hydronephrosis with renal and ureteral calculous obstruction (principal); R07.9 Chest pain, unspecified; I10 Essential (primary) hypertension; Z53.8 Procedure and treatment not carried out for other reasons; Z20.822 Contact with and (suspected) exposure to COVID-19; Z72.0 Tobacco use; Z88.5 Allergy status to narcotic agent
CPT/HCPCS: 36415; 74176; 80053; 81001; 84484; 85025; 93005; 96374; 96375; 99284; A9270; J1885; J2405; J7030; U0002